=== PATIENT | male | born 1965 | race Caucasian/White ===

== ENCOUNTER 2018-10-21 12:14 | Emergency (ER) | payer MEDICAID ==
[~2018-10-21] VITALS: Ht 177.8 cm; Wt 158.8 kg
--- NOTE | 2018-10-21 12:14 | NUR ---
Patient to ER bed 4 to gown for evaluation. Side rails up.
[2018-10-21 12:15] VITALS: BP_SYST 156
--- NOTE | 2018-10-21 12:18 | NUR ---
Patient to ER bed 4 to gown for evaluation. Side rails up.
--- NOTE | 2018-10-21 12:20 | NUR ---
ER at bedside examining patient.
--- NOTE | 2018-10-21 12:35 | NUR ---
pt was brought into er by family who was worried about high blood pressure. pt is a/ox4, denies cp, sob, n/v, dizziness, headache, discomfort or pain of any kind, pt denies any other medical complaint at this time. pt sitting comfortably in er bed, pt states he forgot to take bp meds this morning. will continue to monitor until d/c
--- NOTE | 2018-10-21 12:57 | NUR ---
Patient given written and verbal discharge instructions and verbalizes understanding. ER MD discussed with patient the results and treatment provided. Patient in stable condition. ID arm band removed. no rx given Opportunity for questions provided and answered. Medication side effect fact sheet provided.
[2018-10-21 13:02] VITALS: BP_SYST 156
== END 2018-10-21 13:02 | disposition home or self-care (01) ==
LOC: SED 12:14
DX: I11.0 Hypertensive heart disease with heart failure (principal); I50.9 Heart failure, unspecified; E11.9 Type 2 diabetes mellitus without complications
CPT/HCPCS: 99281

== ENCOUNTER 2021-12-26 11:16 | Emergency (ER) | payer MEDICAID ==
[~2021-12-26] VITALS: Ht 180.3 cm; Wt 127.0 kg
[2021-12-26 11:16] VITALS: BP_SYST 147
[2021-12-26] MEDS ORDERED: ETOMIDATE 20 MG/ 10 ML VIAL (AMIDATE) IVP ONE ×2 (11:17→19:30)
[2021-12-26] MEDS ORDERED: ROCURONIUM BROMIDE 10 MG/ML (ZEMURON) IV ONE ×2 (11:17→19:30)
--- NOTE | 2021-12-26 11:18 | NUR ---
Pt failed swallow screen due to slurred speech.
--- NOTE | 2021-12-26 11:39 | NUR ---
Tele Neuro consult completed at this time. Neuro doctor states that he will speak to ER attending.
[2021-12-26] MEDS ORDERED: NACL 0.9% 2,000 ML IV ONE (11:45)
[2021-12-26 11:59] LABS: BASOPHILS # (AUTO) 0.1 K/uL (0.0-0.2); BASOPHILS % (AUTO) 0.6 % (0.0-2.0); HEMATOCRIT 51.2 % (36-54); HEMOGLOBIN 17.4 g/dL (14.0-18.0); LYMPHOCYTES % (AUTO) 8.5 % (20.5-51.5); MEAN CORPUSCULAR HEMOGLOBIN 31 pg (27-31); MEAN CORPUSCULAR HGB CONC 34 % (32-36); MEAN CORPUSCULAR VOLUME 92 fL (79.0-98.0); MONOCYTES % (AUTO) 8.3 % (1.7-9.3); NEUTROPHILS # (AUTO) 9.6 K/uL (1.8-7.7); NEUTROPHILS % (AUTO) 82.6 % (40.0-70.0); PLATELET COUNT (AUTO) 191 K/uL (130-430); RED CELL DISTRIBUTION WIDTH 13.7 % (9.0-15.0); WHITE BLOOD COUNT (AUTO) 11.6 K/uL (4.8-10.8)
[2021-12-26 12:10] LABS: CALCIUM 9.7 mg/dL (8.4-11.0); CREATININE 1.99 mg/dL (0.55-1.30)
[2021-12-26 12:14] LABS: ALBUMIN 3.1 g/dL (3.4-4.8); TOTAL BILIRUBIN 2.5 mg/dL (0.0-1.0)
[2021-12-26 12:27] LABS: INR 1.1 (0.80-1.20); PROTHROMBIN TIME 11.3 SECS (9.5-12.5)
--- NOTE | 2021-12-26 12:37 | NUR ---
EMA GIRALDO COLLECTED AND SENT TO LAB
[2021-12-26] MEDS ORDERED: COLC0.6T67 PO (13:04)
[2021-12-26] MEDS ORDERED: GABA-529 PO (13:04)
[2021-12-26] MEDS ORDERED: OMEG100037 PO (13:04)
[2021-12-26] MEDS ORDERED: ALLO300T2 PO (13:04)
[2021-12-26] MEDS ORDERED: METF-518 PO (13:04)
[2021-12-26] MEDS ORDERED: CARV25TA55 PO (13:04)
[2021-12-26] MEDS ORDERED: EZET-85 PO (13:04)
--- NOTE | 2021-12-26 13:05 | NUR ---
MED REC COMPLETED.
[2021-12-26] MEDS ORDERED: cefTRIAXone 2 GM VIAL ONE (13:13)
[2021-12-26] MEDS ORDERED: levETIRAcetam 1,000 MG in NS 90 ML IV ONE (13:45)
[2021-12-26] MEDS ORDERED: DEXAMETHASONE SOD PHOSPHATE 10 MG/ML VIAL IVP ONE (13:45)
[2021-12-26] MEDS ORDERED: GADOTERATE MEGLUMINE 7.5 MMOL/15 ML VIAL IV ONE (13:53)
--- NOTE | 2021-12-26 14:10 | NUR ---
Pt off to MRI at this time.
--- NOTE | 2021-12-26 15:19 | NUR ---
Pt back from MRI at this time.
[2021-12-26 15:46] LABS: CKMB RELATIVE INDEX 0.2 (0.0-2.9); CREATINE KINASE MB 15.1 ng/mL (0-3.6)
[2021-12-26 17:21] LABS: BILIRUBIN,URINE 1+ (NEGATIVE); BLOOD, URINE 3+ (NEGATIVE); CLARITY/URINE CLOUDY (CLEAR); COLOR,URINE YELLOW (YELLOW); GLUCOSE,URINE 2+ (NEGATIVE); KETONES,URINE TRACE (NEGATIVE); LEUKOCYTE ESTERASE ,URINE NEGATIVE (NEGATIVE); NITRITE, URINE NEGATIVE (NEGATIVE); PROTEIN URINE 2+ (NEGATIVE)
[2021-12-26 17:29] LABS: BACTERIA,URINE FEW /HPF (None Seen); FINE GRANULAR CASTS,URINE 0-10 /LPF (None Seen); HYALINE CASTS, URINE 0-10 /LPF (None Seen); RBC,URINE NONE SEEN /HPF (0-3); WBC,URINE 0-3 /HPF (0-3); YEAST,URINE Rare /HPF (None Seen)
[2021-12-26 17:30] LABS: MUCUS,URINE None Seen /LPF (None Seen)
--- NOTE | 2021-12-26 18:30 | NUR ---
Multiple attempts to transfer patient has been made by unit ED unit secretary as well as her communicating with different doctors from other facilities as well as this facility ([facility]), catalytic case operator, the patient's insurance company, and management from [facility]. Unable to secure a transfer due to patient saturation at multiple facilties and failure to obtain insurance authorization. Charge nurse aware as well as ER physician.
--- NOTE | 2021-12-26 19:14 | NUR ---
Report given to RACHEL Rebollar. All [facility] assessment changes noticed by patient immediately reported to ER physician throughout dayshift.
--- NOTE | 2021-12-26 19:22 | NUR ---
PATIENT MOVED TO BED 1
[2021-12-26] MEDS ORDERED: PROPOFOL DRIP 100 ML IV ONE ×2 (19:30→23:39)
[2021-12-26] MEDS ORDERED: fentaNYL CITRATE/PF 100 MCG/2 ML AMP IVP ONE (19:30)
--- NOTE | 2021-12-26 19:58 | NUR ---
RSI DR. LIZ PRESENT, RODRIGUEZ RT, LEELEE RT, PAVEL RN AT BEDSIDE. 1957 20MG ETOMIDATE GIVEN IVP 100MG ROCURONIUM GIVEN IVP 1958 7.[address] LIZ 23CM @LIP, +CO2 COLOR CHANGE. BREATH SOUNDS AUSCULTATED BILATERALLY, QUIET OVER STOMACH. XRAY CALLED FOR CONFIRMATION.
--- NOTE | 2021-12-26 20:00 | NUR ---
VENT SETTINGS AC 16 TV 500 PEEP 3 80% FIO2
--- NOTE | 2021-12-26 20:10 | NUR ---
# 16 FR [place] catheter with use of sterile technique. Immediate return of 50 cc MALIHA urine noted. Bedside drainage bag placed below level of bladder. Urine sample collected and sent to lab. Pt tolerated procedure WELL.
--- NOTE | 2021-12-26 20:25 | NUR ---
PROPROFOL TITRATED TO 10 MCG/KG/MIN
--- NOTE | 2021-12-26 20:25 | NUR ---
# 16 FR OG tube placed. Placement checked by auscultation of instilled air into stomach and aspiration of gastric contents. Tubing taped in place to prevent dislodging. Patient tolerated WELL.
--- NOTE | 2021-12-26 20:30 | NUR ---
PROPOFOL TITRATED TO 15 MCG/KG/MIN
--- NOTE | 2021-12-26 20:35 | NUR ---
PROPOFOL TITRATED TO 20 MCG/KG/MIN
--- NOTE | 2021-12-26 20:40 | NUR ---
PROPOFOL TITRATED TO 25 MCG/KG/MIN
[2021-12-26] MEDS ORDERED: NACL 0.9% 1,000 ML IV ONE (20:45)
--- NOTE | 2021-12-26 20:45 | NUR ---
PROPOFOL TITRATED TO 30 MCG/KG/MIN
--- NOTE | 2021-12-26 20:50 | NUR ---
PROPOFOL TITRATED TO 35 MCG/KG/MIN
--- NOTE | 2021-12-26 22:10 | NUR ---
Patient resting quietly. No acute distress noted. VSS.
--- NOTE | 2021-12-26 23:07 | NUR ---
report given to Doni RAMOS at [facility]
--- NOTE | 2021-12-27 01:00 | NUR ---
Patient resting quietly. No acute distress noted. VSS.
[2021-12-27] MEDS ORDERED: PROPOFOL DRIP 100 ML IV ONE ×2 (01:15→02:00)
[2021-12-27 02:00] VITALS: BP_SYST 159
--- NOTE | 2021-12-27 02:00 | NUR ---
REPORT GIVEN TO REACH FLIGHT RACHEL GOMRAN.
== END 2021-12-27 02:00 | disposition short-term general hospital (02) ==
LOC: SED 11:16
DX: G93.6 Cerebral edema (principal); R41.82 Altered mental status, unspecified; N28.9 Disorder of kidney and ureter, unspecified; E87.20 Acidosis, unspecified; M62.82 Rhabdomyolysis; E11.9 Type 2 diabetes mellitus without complications; I10 Essential (primary) hypertension; Z79.899 Other long term (current) drug therapy; Z20.822 Contact with and (suspected) exposure to COVID-19
CPT/HCPCS: 99291; 94002; 70553; 31500; 96365; 71045; 96375; 96367 ×2; 70450; 96361; 87426; 80053; 81000; 82550; 82553; 85025; 85610; 85730; 87040; 84484; 36415; 93005; 76376; 36600; 82803; 83605; J0696; J1100; J3490; J1953; J2704 ×2; J3010; J7030; A9575